=== PATIENT | female | born 1990 | race American Indian/Alaskan Native ===

== ENCOUNTER 2018-05-17 06:19 | Outpatient (CLI) | payer OTHER ==
[2018-05-17] MEDS ORDERED: LACTATED RINGERS 1,000 ML IV ONE (06:46)
[2018-05-17] MEDS: BRETHINE SUB-Q SCH ×2 (07:21→08:36)
[2018-05-17 08:19] LABS: Bilirubin,Urine NEG (Negative); Blood,Urine NEG (Negative); Color,Urine Yellow (Yellow)
[2018-05-17 08:20] LABS: Bacteria,Urine 1+ /HPF (Negative); Mucus,Urine 3+ /HPF
[2018-05-17] MEDS ORDERED: BRETHINE ONE (08:36)
== END 2018-05-17 09:35 | disposition home or self-care (01) ==
LOC: TRG 06:19
PROVIDERS: ATTEND Obstetrics & Gynecology
DX: O26.899 Other specified pregnancy related conditions, unspecified trimester (principal); R10.9 Unspecified abdominal pain; O99.519 Diseases of the respiratory system complicating pregnancy, unspecified trimester; J45.909 Unspecified asthma, uncomplicated; Z3A.00 Weeks of gestation of pregnancy not specified
CPT/HCPCS: 59025; 81001; 96360; 96372; J3105; J7120; 96361